=== PATIENT | female | born 1950 | race Caucasian/White ===

== ENCOUNTER 2021-03-20 14:59 | Outpatient (CLI) | payer MEDICARE, SELFPAY ==
--- NOTE | 2021-03-20 | MM_ITS ---
WS: [email or web address] BILATERAL DIGITAL SCREENING MAMMOGRAPHY WITH CAD CLINICAL INFORMATION: SCREENING HISTORY: Screening mammogram. No current complaints. COMPARISON: None. TECHNIQUE: Bilateral CC and MLO views. FINDINGS: The breasts are composed of heterogeneous fibroglandular density tissue, which can limit the detectio n of small underlying mass lesions. Punctate calcifications. Vascular calcification. No suspicious ma ss, asymmetry, calcifications, or architectural distortion. No evidence of malignancy. MM/[place] [id number] IMPRESSION: BI-RADS: 2-Benign FOLLOW UP: 1 Year Follow-up Recommend return to annual screening mammography.
--- NOTE | 2021-03-20 16:26 | XR_ITS ---
WS: [email or web address] XR hip LT 2-3V wo/w pel* [id number] REASON FOR EXAM: LT. HIP JOINT PAIN FINDINGS: No fracture or focal bone lesion. Left hip joint space is relatively well preserved. Minimal subchondral sclerosis of the acetabulum with small marginal osteophyte. Minor osteophyte form ation of the femoral head. No soft tissue abnormality. XR/XR hip LT 2-3V wo/w pel* [id number] IMPRESSION: Mild changes of osteoarthritis of the left as above.
== END 2021-03-20 15:00 | disposition home or self-care (01) ==
PROVIDERS: PCP Clinical Nurse Specialist Adult Health; Referring Provider Clinical Nurse Specialist Adult Health; Visit Provider Family Medicine
DX: Z12.31 Encounter for screening mammogram for malignant neoplasm of breast (principal); M25.552 Pain in left hip
CPT/HCPCS: 73502; 77067

== ENCOUNTER → 2021-07-10 14:28 | Outpatient (BNVA) | payer MEDICARE, SELFPAY | PROVIDERS: Visit Provider Clinical Nurse Specialist Adult Health | DX: E03.9 Hypothyroidism, unspecified (principal); E78.5 Hyperlipidemia, unspecified | CPT/HCPCS: 80061; 84443 ==

== ENCOUNTER → 2021-11-14 09:39 | Outpatient (BNVA) | payer MEDICARE, SELFPAY | PROVIDERS: Visit Provider Podiatrist Foot & Ankle Surgery | DX: M24.572 Contracture, left ankle (principal); M72.2 Plantar fascial fibromatosis | CPT/HCPCS: 73630; 99203 ==

== ENCOUNTER 2021-12-16 13:45 | Outpatient (CLI) | payer MEDICARE, SELFPAY | END 2021-12-16 13:46 | disposition home or self-care (01) | LOC: SPT 13:46 | PROVIDERS: Visit Provider Podiatrist Foot & Ankle Surgery | DX: Z46.89 Encounter for fitting and adjustment of other specified devices (principal); M72.2 Plantar fascial fibromatosis; M79.672 Pain in left foot; M24.572 Contracture, left ankle | CPT/HCPCS: 97760; 99213; L4397 ==

== ENCOUNTER → 2022-02-20 08:32 | Outpatient (BNVA) | payer MEDICARE, SELFPAY | PROVIDERS: PCP Clinical Nurse Specialist Adult Health; Visit Provider Clinical Nurse Specialist Adult Health | DX: E03.9 Hypothyroidism, unspecified (principal); E78.5 Hyperlipidemia, unspecified | CPT/HCPCS: 84443 ==

== ENCOUNTER → 2022-03-21 08:02 | Outpatient (BNVA) | payer MEDICARE, SELFPAY | PROVIDERS: PCP Clinical Nurse Specialist Adult Health; Visit Provider Podiatrist Foot & Ankle Surgery | DX: M24.572 Contracture, left ankle (principal); M72.2 Plantar fascial fibromatosis | CPT/HCPCS: 99213 ==

== ENCOUNTER 2022-04-11 12:51 | Outpatient (CLI) | payer MEDICARE, SELFPAY ==
--- NOTE | 2022-04-11 12:58 | MM_ITS ---
WS: [email or web address] Bilateral screening 3D tomosynthesis digital mammogram, 04/11/2022 Clinical Data: SCREENING Comparison: 03/20/2021, 10/31/2019, 10/29/2018. Findings: The breast parenchymal pattern shows heterogeneous density. No spiculated masses or clustered calcifi cations are seen. There are no secondary signs of carcinoma. Mole markers are on both breasts. MM/[place] [id number] Impression: 1. Negative bilateral mammogram unchanged. 2. Recommend annual screening mammograms. BIRADS: 1-Negative FOLLOW UP: 1 Year Follow-up The CAD production checker was used.
== END 2022-04-11 12:52 | disposition home or self-care (01) ==
PROVIDERS: PCP Clinical Nurse Specialist Adult Health; Visit Provider Clinical Nurse Specialist Adult Health
DX: Z12.31 Encounter for screening mammogram for malignant neoplasm of breast (principal)
CPT/HCPCS: 77063; 77067

== ENCOUNTER → 2022-09-03 14:24 | Outpatient (BNVA) | payer MEDICARE, SELFPAY | PROVIDERS: PCP Clinical Nurse Specialist Adult Health; Visit Provider Clinical Nurse Specialist Adult Health | DX: Z00.00 Encounter for general adult medical examination without abnormal findings (principal); E03.9 Hypothyroidism, unspecified; E78.00 Pure hypercholesterolemia, unspecified; Z78.0 Asymptomatic menopausal state; Z13.820 Encounter for screening for osteoporosis; Z12.11 Encounter for screening for malignant neoplasm of colon; H66.93 Otitis media, unspecified, bilateral | CPT/HCPCS: 80053; 80061; 84443; 85025 ==

== ENCOUNTER → 2022-09-05 08:57 | Outpatient (BNVA) | payer MEDICARE, SELFPAY | PROVIDERS: PCP Clinical Nurse Specialist Adult Health; Visit Provider Clinical Nurse Specialist Adult Health | DX: E03.9 Hypothyroidism, unspecified (principal); E78.5 Hyperlipidemia, unspecified | CPT/HCPCS: 80061 ==

== ENCOUNTER 2022-09-15 14:11 | Outpatient (CLI) | payer MEDICARE, SELFPAY ==
--- NOTE | 2022-09-15 14:30 | XR_ITS ---
WS: [email or web address] SCREENING DEXA SCAN [employer] CLINICAL INFORMATION: screening osteoporosis COMPARISON: None. FINDINGS: The L1-L4 bone mineral density measures 1.138 g/cm2. This corresponds to a T score score of -0.4 and Z score of 1.4. Left femoral neck bone mineral density measures 0.816 g/cm2. This corresponds to a T score of -1.5 an d Z score of 0.1. Right femoral neck bone mineral density measures 0.837 g/cm2. This corresponds to a T score -1.4of an d Z score of 0.3. Mean femoral neck bone mineral density measures 0.827 g/cm2. This corresponds to a T score of -1.4 an d Z score of 0.2. XR/XR DEXA axial skeleton* [id number] IMPRESSION: Normal bone mineralization lumbar spine. Osteopenia femoral necks. Patient's FRAX calculated 10 year probability for major osteoporotic fracture i s 13.0 % and osteoporotic hip fracture is 3.1%.
== END 2022-09-15 14:12 | disposition home or self-care (01) ==
PROVIDERS: PCP Clinical Nurse Specialist Adult Health; Visit Provider Clinical Nurse Specialist Adult Health
DX: Z13.820 Encounter for screening for osteoporosis (principal); Z78.0 Asymptomatic menopausal state; M85.852 Other specified disorders of bone density and structure, left thigh; M85.851 Other specified disorders of bone density and structure, right thigh
CPT/HCPCS: 77080

== ENCOUNTER → 2022-09-17 14:30 | Outpatient (BNVA) | payer MEDICARE, SELFPAY | PROVIDERS: PCP Clinical Nurse Specialist Adult Health; Visit Provider Clinical Nurse Specialist Adult Health | DX: M85.80 Other specified disorders of bone density and structure, unspecified site (principal); E78.5 Hyperlipidemia, unspecified; E03.9 Hypothyroidism, unspecified | CPT/HCPCS: 82306 ==

== ENCOUNTER 2023-05-29 08:47 | Outpatient (CLI) | payer MEDICARE, SELFPAY ==
--- NOTE | 2023-05-29 08:50 | MM_ITS ---
WS: [email or web address] Bilateral screening 3D tomosynthesis digital mammogram, 05/29/2023 Clinical Data: SCREENING Comparison: 04/16/2022, 03/20/2021, 10/31/2019, 10/29/2018, 10/28/2017. Findings: The breast parenchymal pattern shows heterogeneous density. No spiculated masses or clustered calcifi cations are seen. There are no secondary signs of carcinoma. There are mole markers on both breasts. Impression: 1. Negative bilateral mammogram unchanged. 2. Recommend annual screening mammograms. MM/[place] [id number] BIRADS: 1-Negative FOLLOW UP: 1 Year Follow-up The CAD purchase order checker was used.
== END 2023-05-29 08:48 | disposition home or self-care (01) ==
LOC: RAD 08:48
PROVIDERS: PCP Clinical Nurse Specialist Adult Health; Visit Provider Clinical Nurse Specialist Adult Health
DX: Z12.31 Encounter for screening mammogram for malignant neoplasm of breast (principal)
CPT/HCPCS: 77063; 77067

== ENCOUNTER → 2023-11-26 08:08 | Outpatient (BNVA) | payer MEDICARE, SELFPAY | PROVIDERS: PCP Clinical Nurse Specialist Adult Health; Visit Provider Clinical Nurse Specialist Adult Health | DX: Z00.00 Encounter for general adult medical examination without abnormal findings (principal); E03.9 Hypothyroidism, unspecified | CPT/HCPCS: 80053; 82306; 84443; 85025 ==

== ENCOUNTER → 2023-12-10 09:30 | Outpatient (BNVA) | payer MEDICARE, SELFPAY | PROVIDERS: PCP Clinical Nurse Specialist Adult Health; Referring Provider Clinical Nurse Specialist Adult Health; Visit Provider Physician Assistant | DX: M25.552 Pain in left hip (principal); M70.62 Trochanteric bursitis, left hip | CPT/HCPCS: 20610; 73502; 99213; J3301; J3490 ==

== ENCOUNTER → 2024-04-14 09:08 | Outpatient (BNVA) | payer MEDICARE, SELFPAY | PROVIDERS: PCP Clinical Nurse Specialist Adult Health; Visit Provider Clinical Nurse Specialist Adult Health | DX: E03.9 Hypothyroidism, unspecified (principal) | CPT/HCPCS: 84443 ==

== ENCOUNTER 2024-07-14 08:54 | Outpatient (CLI) | payer MEDICARE, SELFPAY ==
--- NOTE | 2024-07-14 08:58 | MM_ITS ---
WS: [email or web address] BILATERAL SCREENING DIGITAL TOMOSYNTHESIS MAMMOGRAM WITH CAD HISTORY: SCREENING COMPARISON: 05/29/2023, 04/11/2022 Bilateral CC and MLO views with tomosynthesis and synthetic mammography submitted. Computer aided detection analyzed. Breast composition: The breasts are heterogeneously dense, which may obscure small masses. No suspicious masses, microcalcifications or architectural distortion. Benign arterial calcifications and scattered benign round calcifications in each breast. MM/MM scr tomosynthesis [id number] IMPRESSION: BI-RADS: 2 - Benign FOLLOW UP: 1 Year Follow-up
== END 2024-07-14 08:55 | disposition home or self-care (01) ==
LOC: RAD 08:56
PROVIDERS: PCP Family Medicine; Visit Provider Family Medicine
DX: Z12.31 Encounter for screening mammogram for malignant neoplasm of breast (principal); R92.333 Mammographic heterogeneous density, bilateral breasts; R92.1 Mammographic calcification found on diagnostic imaging of breast
CPT/HCPCS: 77063; 77067

== ENCOUNTER 2024-08-05 10:46 | Emergency (ER) | payer MEDICARE, SELFPAY ==
[2024-08-05] VITALS (7 sets, daily range): BP systolic 100–126; BP diastolic 41–60; PULSE 44–53; RESP 12–15; TEMP 36.4; O2SAT 94–100; BMI 22.4
--- NOTE | 2024-08-05 10:55 | XR_ITS ---
WS: [email or web address] Portable AP upright chest, 08/05/2024 Clinical Data: sob Comparison: None. Findings: No nodules, masses or effusions are seen. The heart is normal. The pulmonary vascularity is not increased. No pneumonia or pneumothorax is seen. The aortic arch and descending thoracic aorta show mild tortuosity. Monitor leads are on the chest wall. XR/XR chest 1V portable [id number] Impression: Atherosclerosis.
--- NOTE | 2024-08-05 11:08 | ECG_ITS ---
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 Measurements Intervals [place] Rate: 47 P: 57 CT: 163 QRS: 20 QRSD: 84 T: 56 QT: 483 QTc: 431 Interpretive Statements SINUS BRADYCARDIA No previous ECG available for comparison Electronically Signed On 08-09-2024 11:46:24 CDT by Justin Rosas M.D. [id number]
--- NOTE | 2024-08-05 11:10 | CT_ITS ---
WS: [email or web address] CT scan of the head, 08/05/2024 Clinical Data: weakness Comparison: None. DLP: 1056.[address] scans at [place] use at least one of these dose optimization techniques: automated exposure control; mA and/or kV adjustment per patient size (includes targeted exams where dose is matched to clinical indication); or iterative reconstruction. Findings: The ventricular system is minimally dilated without shift. The sulci are prominent. No recent infarct or hemorrhage is seen. There is a small area of low density in the right parietal lobe white matter which may represent an old small infarct. There are no abnormal intracerebral masses. The cerebellum and brainstem are not remarkable. Bony windows of the skull and skull base show no fractures or erosions. The mastoid air cells, internal auditory canals, sella turcica, intraorbital contents, and paranasal sinuses are unremarkable. CT/CT head wo con* [id number] Impression: Mild cerebral atrophy.
--- NOTE | 2024-08-05 11:10 | W.ED.GENADLT ---
HPI - General Adult General: Chief complaint: Shortness of Breath/Dyspnea Stated complaint: SOB sent by Dr Lindquist for EKG Time Seen by Provider: 08/05/24 10:54 Source: patient Mode of arrival: ambulatory Limitations: no limitations History of Present Illness: 73-year-old female states she has been feeling generally weak over the last 2 weeks. She states she had recently had a UTI finished treatment on the . States she is just felt weak has had some lightheadedness when walking denies any recent fevers denies any pain to me. No vomiting or diarrhea Associated symptoms: Reports malaise; Deny chest pain, dyspnea, headache(s), nausea, rash or vomiting Related Data Home Medications ?Medication ?Instructions ?Recorded ?Confirmed citalopram 20 mg tablet 20 mg PO QAM 08/05/24 08/05/24 levothyroxine 88 mcg tablet 88 mcg PO QAM 08/05/24 08/05/24 multivitamin 1 tab PO QAM 08/05/24 08/05/24 valacyclovir 1 gram tablet 1,000 mg PO DAILY PRN Cold Sores 08/05/24 08/05/24 (Valtrex) Previous Rx's ?Medication ?Instructions ?Recorded calcium carbonate 215 mg PO BID #60 tabs 09/16/22 ondansetron 4 mg disintegrating 4 mg PO Q6H PRN nausea and 07/29/24 tablet vomiting #20 tabs Allergies Allergy/AdvReac Type Severity Reaction Status Date / Time ciprofloxacin (From Cipro) Allergy Intermediate Vomiting Verified 08/05/24 11:12 azithromycin (From Zithromax) Allergy ADR-Abdominal Verified 08/05/24 11:12 Pain Review of Systems Const: Reports: fatigue and malaise; Denies: fever(s), chills, body aches or change in appetite ENMT: Denies: throat pain or dental pain Card: Denies: chest pain Resp: Denies: dyspnea GI: Denies: abdominal pain, nausea, vomiting or diarrhea : Denies: dysuria Musc: Denies: neck pain or back pain Skin/Breast: Denies: rash Neuro: Denies: headache(s) PFSH ED PFSH: Medical History Fever and chills History of Lyme disease Shingles Osteopenia THOMAS (obstructive sleep apnea) Fibromyalgia Major depression HSV (herpes simplex virus) infection Hyperlipidemia Hypothyroidism Surgical History History of bladder surgery Social History Smoking and tobacco/nicotine status: never used tobacco/nicotine Alcohol intake: never Substance/Drug Use: never Physical Exam Const: COMMON NORMALS: no acute distress, patient oriented x3 and healthy appearing HENMT: COMMON NORMALS: normocephalic and atraumatic HEAD & SCALP: normocephalic and atraumatic Eye: COMMON NORMALS: Equal, round and reactive pupils present and EOMs intact bilaterally PUPIL: Yes Equal, round and reactive pupils present Neck/C-Spine: COMMON NORMALS: full ROM and supple Chest: COMMONS NORMALS: normal inspection of the chest and normal palpation of entire chest wall Resp: COMMON NORMALS: normal respiratory effort, No retractions, No use of accessory muscles and clear to auscultation bilaterally AUSCULTATION: clear to auscultation bilaterally Cardio: COMMON NORMALS: regular rate, regular rhythm and No murmurs present (Cardio) RATE: regular rate RHYTHM: regular rhythm GI: COMMON NORMALS: Normal to inspection, nondistended, normoactive bowel sounds present, Soft to palpation, non-tender and no masses PALPATION: Yes Soft to palpation Extremity: COMMON NORMALS: normal to inspection and full ROM Neuro: COMMON NORMALS: patient oriented x3, moves all extremities and no focal motor deficits Psych: COMMON NORMALS: mental status grossly normal, Normal thought process present and cooperative THOUGHT PROCESS: Normal thought process present Skin: COMMON NORMALS: no rashes or lesions noted and no wounds GENERAL SKIN EXAM: no rashes or lesions noted Course Vital Signs: Vital signs: Vital Signs Temperature 97.5 F L 08/05/24 11:03 Pulse Rate 53 L 08/05/24 11:12 Respiratory Rate 12 08/05/24 11:12 Blood Pressure 100/60 08/05/24 11:12 Pulse Oximetry 96 08/05/24 11:12 [facility] - General Adult Medical Decision Making Patient presents here with generalized weakness she has been well-appearing here blood work imaging all normal he will she does feel improved after fluids she is stable for discharge follow-up with PCP return if worsening. Medical Records I reviewed the patient's medical records. Lab Data I reviewed the patient's lab results. 08/05/24 11:17 08/05/24 11:17 Radiology Impressions Chest X-Ray 08/05/24 10:55 Impression: Atherosclerosis. Head CT 08/05/24 11:10 Impression: Mild cerebral atrophy. Laboratory Results WBC 5.51 10^3/uL (3.29-11.43) 08/05/24 11:17 RBC 3.88 10^6/uL (3.85-5.65) 08/05/24 11:17 Hgb 12.30 g/dL (11.27-16.99) 08/05/24 11:17 Hct 38.1 % (36-47) 08/05/24 11:17 MCV 98.2 fl (85-98) H 08/05/24 11:17 MCH 31.7 pg (27-33) 08/05/24 11:17 MCHC 32.3 g/dL (30-55) 08/05/24 11:17 RDW 13.5 % (12.1-15.1) 08/05/24 11:17 Plt Count 368 10^3/cmm (157-399) 08/05/24 11:17 MPV 9.1 fL (7.4-10.4) 08/05/24 11:17 Neut % (Auto) 44.3 % 08/05/24 11:17 Lymph % (Auto) 43.6 % 08/05/24 11:17 [place] % (Auto) 10.5 % 08/05/24 11:17 Eos % (Auto) 0.7 % 08/05/24 11:17 Baso % (Auto) 0.7 % 08/05/24 11:17 Neut # (Auto) 2.44 10^3/uL (1.8-7.7) 08/05/24 11:17 Lymph # (Auto) 2.4 10^3/uL (0.8-4.8) 08/05/24 11:17 [place] # (Auto) 0.6 10^3/uL (0.2-0.9) 08/05/24 11:17 Eos # (Auto) 0.0 10^3/uL (0.0-0.8) 08/05/24 11:17 Baso # (Auto) 0.0 10^3/uL (0.0-0.1) 08/05/24 11:17 Nucleated RBC % (auto) 0 % 08/05/24 11:17 Nucleated RBCs # 0.0 /100WBC 08/05/24 11:17 Sodium 142 mmol/L (136-145) 08/05/24 11:17 Potassium 4.6 mmol/L (3.5-5.1) 08/05/24 11:17 Chloride 108 mmol/L (98-107) H 08/05/24 11:17 Carbon Dioxide 22 mmol/L (22-29) 08/05/24 11:17 Anion Gap 16.6 (5-19) 08/05/24 11:17 BUN 8 mg/dL (8-23) 08/05/24 11:17 Creatinine 0.7 mg/dL (0.5-0.9) 08/05/24 11:17 GFR Calculation Not Reportable 08/05/24 11:17 Glucose 89 mg/dL (65-115) 08/05/24 11:17 Calculated Osmolality 292 mOsm/kg (285-295) 08/05/24 11:17 Calcium 8.6 mg/dL (8.5-10.5) 08/05/24 11:17 Total Bilirubin 0.5 mg/dL (0.15-1.2) 08/05/24 11:17 AST 64 U/L (0-32) H 08/05/24 11:17 ALT 78 U/L (0-33) H 08/05/24 11:17 Alkaline Phosphatase 105 U/L (35-105) 08/05/24 11:17 Troponin T Baseline 9 ng/L (0-10) 08/05/24 11:17 Troponin T 120 Minute 7.26 ng/L (0-10) 08/05/24 13:00 Delta Troponin T -1.74 ABS# (0-10) L 08/05/24 13:00 NT-Pro-B Natriuret Pep 241 pg/mL (0-450) 08/05/24 11:17 Total Protein 6.3 g/dL (6.6-8.7) L 08/05/24 11:17 Albumin 3.7 g/dL (3.5-5.2) 08/05/24 11:17 Globulin 2.6 g/dL (1.3-4.6) 08/05/24 11:17 TSH 2.16 uIU/mL (0.27-4.20) 08/05/24 11:17 Urine Color Yellow (Yellow) 08/05/24 12:00 Urine Appearance Clear (CLEAR) 08/05/24 12:00 Urine pH 7.5 (5-7) 08/05/24 12:00 Ur Specific [place] 1.013 (1.005-1.030) 08/05/24 12:00 Urine Protein Negative (Negative) 08/05/24 12:00 Urine Glucose (UA) Negative (Normal) 08/05/24 12:00 Urine Ketones Negative (Negative) 08/05/24 12:00 Urine Blood Negative (Negative) 08/05/24 12:00 Urine Nitrate Negative (Negative) 08/05/24 12:00 Urine Bilirubin Negative (Negative) 08/05/24 12:00 Urine Urobilinogen 1.0 mg/dL (Negative) 08/05/24 12:00 Ur Leukocyte Esterase 2+ (Negative) A 08/05/24 12:00 Urine RBC 0-2 /hpf (0-2) 08/05/24 12:00 Urine WBC 6-10 /hpf (0-5) 08/05/24 12:00 Ur Squamous Epith Cells 0-5 /hpf (0-5) 08/05/24 12:00 Amorphous Sediment Not Reportable 08/05/24 12:00 Urine Bacteria None seen /hpf (NONE) 08/05/24 12:00 Hyaline Casts 1.21 /lpf 08/05/24 12:00 Influenza A (PCR) Negative (Negative) 08/05/24 13:00 Influenza Type B (PCR) Negative (Negative) 08/05/24 13:00 RSV (PCR) Negative (Negative) 08/05/24 13:00 SARS-CoV-2 (PCR) Negative (Negative) 08/05/24 13:00 All radiology interpretation(s) finalized by discharge Discharge Plan Discharge Patient Disposition: Home Clinical Impression: Generalized weakness Condition: Stable Prescriptions: No Action ondansetron 4 mg tablet,disintegrating 4 mg PO Q6H PRN (Reason: nausea and vomiting) Qty: 20 0RF Rx Instructions: 340b please calcium carbonate 215 mg calcium (500 mg) tablet,chewable 215 mg PO BID Qty: 60 0RF multivitamin Tablet 1 tab PO QAM valacyclovir [Valtrex] 1 gram tablet 1,000 mg PO DAILY PRN (Reason: Cold Sores) Rx Instructions: for 1 dose on the day of lesion levothyroxine 88 mcg tablet 88 mcg PO QAM citalopram 20 mg tablet 20 mg PO QAM Discharge Orders: Discharge ED (Routine); Ordered 08/05/24 Ordered By: Lorena Land Referrals: Katey Lindquist DO [Primary Care Provider, Family Practice] - 4-7 days Discharge Diet: Advance as tolerated Discharge Activity: Resume usual activity Patient Instructions: Weakness (ED) Print Language: Grenadian Coding Level of Care Code ED Hydro Operator for Bijan Ricks
[2024-08-05 11:21] LABS: Basophils % 0.7 %; Eosinophils % 0.7 %; Hematocrit 38.1 % (36-47); Lymphocytes # 2.4 10^3/uL (0.8-4.8); Lymphocytes % 43.6 %; Mean Corpuscular HGB Conc 32.3 g/dL (30-55); Mean Corpuscular Hemoglobin 31.7 pg (27-33); Mean Corpuscular Volume 98.2 fl (85-98); Mean Platelet Volume 9.1 fL (7.4-10.4); Monocytes # 0.6 10^3/uL (0.2-0.9); Monocytes % 10.5 %; Neutrophils # 2.44 10^3/uL (1.8-7.7); Neutrophils % 44.3 %; Nucleated Red Blood Cells % 0 %; Platelet Count 368 10^3/cmm (157-399); Red Blood Count 3.88 10^6/uL (3.85-5.65); Red Cell Distribution Width 13.5 % (12.1-15.1); White Blood Count 5.51 10^3/uL (3.29-11.43)
[2024-08-05 11:45] LABS: Troponin(5th) Baseline 9 ng/L (0-10)
[2024-08-05 11:52] LABS: Alanine Aminotransferase 78 U/L (0-33); Albumin Level 3.7 g/dL (3.5-5.2); Alkaline Phosphatase 105 U/L (35-105); Anion Gap 16.6 (5-19); Aspartate Amino Transferase 64 U/L (0-32); Blood Urea Nitrogen 8 mg/dL (8-23); Calcium 8.6 mg/dL (8.5-10.5); Carbon Dioxide 22 mmol/L (22-29); Chloride 108 mmol/L (98-107); Creatinine Clr Calc Pharmacy 54.2797; Globulin 2.6 g/dL (1.3-4.6); Glucose 89 mg/dL (65-115); NT Pro B Type Natriuretic Pept 241 pg/mL (0-450); Osmolality Calculated 292 mOsm/kg (285-295); Potassium 4.6 mmol/L (3.5-5.1); Sodium 142 mmol/L (136-145); Thyroid Stimulating Hormone 2.16 uIU/mL (0.27-4.20); Total Bilirubin 0.5 mg/dL (0.15-1.2); Total Protein 6.3 g/dL (6.6-8.7)
[2024-08-05 12:09] LABS: Bilirubin Urine Negative (Negative); Blood Urine Negative (Negative); Glucose Urine UA Negative (Normal); Ketones Urine Negative (Negative); Leukocyte Esterase Urine 2+ (Negative); Nitrate Urine Negative (Negative); Protein Urine Negative (Negative); Specific Gravity, Urine 1.013 (1.005-1.030); Urine Appearance Clear (CLEAR); Urine Color Yellow (Yellow); pH Urine 7.5 (5-7)
[2024-08-05 12:14] LABS: Add Urine Microscopic? YES; Bacteria Urine None Seen /hpf; Hyaline Casts Urine 1.21 /lpf; RBC Urine 0-2 /hpf (0-2); Squamous Epithelial Cell Urine 0-5 /hpf (0-5)
[2024-08-05] MEDS: sodium chloride 0.9% 1,000 ML 999 ML IV (13:01)
--- NOTE | 2024-08-05 13:08 | ECG_ITS ---
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
[2024-08-05 13:32] LABS: Troponin 5 2HR 7.26 ng/L (0-10)
[2024-08-05 13:33] LABS: Troponin 5 2HR Delta -1.74 ABS# (0-10)
[2024-08-05 13:52] LABS: Influenza A NEGATIVE (Negative); Influenza B NEGATIVE (Negative); Respiratory Syncytial Virus Ce NEGATIVE (Negative); SARS-CoV-2 PCR NEGATIVE (Negative)
== END 2024-08-05 14:31 | disposition home or self-care (01) ==
PROVIDERS: Emergency Provider Emergency Medicine; PCP Family Medicine
DX: R53.1 Weakness (principal); Z11.52 Encounter for screening for COVID-19; E78.5 Hyperlipidemia, unspecified
CPT/HCPCS: 70450; 71045; 80053; 81001; 83880; 84443; 84484; 85025; 87637; 93005; 96360; 99285; J7030

== ENCOUNTER → 2024-11-14 08:36 | Outpatient (BNVA) | payer MEDICARE, SELFPAY | PROVIDERS: PCP Family Medicine; Visit Provider Family Medicine | DX: E03.9 Hypothyroidism, unspecified (principal); R79.89 Other specified abnormal findings of blood chemistry | CPT/HCPCS: 80053; 84439; 84443 ==

== ENCOUNTER 2025-01-05 15:47 | Outpatient (CLI) | payer MEDICARE, SELFPAY ==
--- NOTE | 2025-01-05 16:03 | XR_ITS ---
WS: [email or web address] Exam: XR hip LT 2-3V wo/w pel* [id number] Date/Time of Exam: 01/05/2025 4:03 PM Reason For Exam: left hip pain No acute fracture. Minimal DJD of the acetabulum. The joint compartment is relatively well-maintained. Normal soft tissues. The pelvis is unremarkable as visualized. XR/XR hip LT 2-3V wo/w pel* [id number] IMPRESSION: 1. Mild DJD.
--- NOTE | 2025-01-05 16:03 | XR_ITS ---
WS: [email or web address] Exam: XR hip RT 2-3V wo/w pel* [id number] Date/Time of Exam: 01/05/2025 4:03 PM Reason For Exam: right hip pain No fracture. Mild DJD of the acetabulum. The joint spaces preserved. Normal soft tissues. The visualized pelvis is unremarkable. XR/XR hip RT 2-3V wo/w pel* [id number] IMPRESSION: 1. Mild DJD.
== END 2025-01-05 15:48 | disposition home or self-care (01) ==
PROVIDERS: PCP Family Medicine; Visit Provider Family Medicine
DX: M70.62 Trochanteric bursitis, left hip (principal); M25.551 Pain in right hip; M16.11 Unilateral primary osteoarthritis, right hip; M16.12 Unilateral primary osteoarthritis, left hip
CPT/HCPCS: 73502

== ENCOUNTER → 2025-01-24 09:04 | Outpatient (BNVA) | payer MEDICARE, SELFPAY | PROVIDERS: PCP Family Medicine; Visit Provider Physician Assistant | DX: M70.62 Trochanteric bursitis, left hip (principal); M25.551 Pain in right hip | CPT/HCPCS: 20610; 99213; J3301; J3490; J9999 ==

== ENCOUNTER → 2025-02-27 13:28 | Outpatient (BNVA) | payer MEDICARE, SELFPAY | PROVIDERS: PCP Family Medicine | DX: J06.9 Acute upper respiratory infection, unspecified (principal); J02.9 Acute pharyngitis, unspecified | CPT/HCPCS: 87071; 87400; 87426; 87880 ==